=== PATIENT | female | born 1970 | race Caucasian/White ===

== ENCOUNTER 2019-01-26 14:37 | Day surgery (SDC) | payer BC, OTHER ==
[2019-01-25 17:19] VITALS: BMI 38.2
[2019-01-26] MEDS ORDERED: PROPOFOL 20 ML ONE (16:12)
--- NOTE | 2019-01-26 16:21 | HP ---
History & Physical Update - History History: No Change - Physical Physical: No Change - Assessment Assessment: No Change - Plan Plan: No Change (Hysteroscopy, D&C)
[2019-01-26] MEDS ORDERED: DEXAMETHASONE SOD PHOSPHATE 4 MG/1 ML VIAL ONE (17:07)
[2019-01-26] MEDS ORDERED: KETOROLAC TROMETHAMINE 30 MG/1 ML VIAL ONE (17:07)
--- NOTE | 2019-01-26 17:28 | OP ---
Operative Note - Note: Operative Date: 01/26/19 Pre-Operative Diagnosis: Menorrhagia Operation: Hysteroscopy, D&C Findings: Normal uterine cavity Post-Operative Diagnosis: Same as Pre-op Surgeon: Alex Murdock Anesthesiologist/DELINQUENCY COUNSELOR: Jasmeet Benjamin Anesthesia: General Specimens Removed: Endometrial curettings Estimated Blood Loss (mls): 10 Drains, Volume Out (mls): 0 Blood Volume Replaced (mls): 0 Fluid Volume Replaced (mls): 400 Operative Report Dictated: Yes
[2019-01-26] MEDS ORDERED: ACETAMINOPHEN 1000 MG/100 ML VIAL (NON FORMULARY) IVPB ONE ×2 (17:50→17:54)
[2019-01-26 19:32] VITALS: BP 140/64; PULSE 72; TEMP 98.1
--- NOTE | 2019-01-26 23:15 | OP ---
DATE OF OPERATION: 01/26/2019 PREOPERATIVE DIAGNOSIS: Menorrhagia. POSTOPERATIVE DIAGNOSIS: Menorrhagia. PROCEDURE: Hysteroscopy dilation and curettage. SURGEON: Al Pollock M.D. WET PROCESS MILLER HEAD ASSISTANT: None ANESTHESIOLOGIST: Jasmeet Benjamin M.D. ANESTHESIA: General. COMPLICATIONS: None. ESTIMATED BLOOD LOSS: 10 mL. INTRAVENOUS FLUIDS: 400 mL. PATHOLOGY: Endometrial curettings. FINDINGS: Normal uterine cavity. No lesions, no masses. PROCEDURE: The patient was met preoperatively. Risks, benefits, and alternatives of surgery were discussed in detail. All questions were answered. The patient was brought to the OR with the IV running. She was placed on a surgical table in a supine position. The general anesthesia was achieved without difficulty. The patient was then placed in a dorsal lithotomy position using adjustable Power stirrups. She was examined under anesthesia with the findings as described above. The uterus appeared to be small and mobile with no pelvic or adnexal masses. A timeout procedure was conducted as per standard protocol. The patient was then prepped and draped in the usual sterile fashion. A weighted speculum was introduced inside the vagina with good visualization of the cervix. The cervix was grasped with a single-toothed tenaculum. No cervical dilation was needed. The hysteroscope was introduced into the uterine cavity. Through the endocervical canal. The endometrial cavity appears to be within normal limits. The hysteroscope was then removed and sharp endometrial curettage was performed. The procedure was completed with good hemostasis. Once the curettage was finished, all the instruments were removed from the patient. Good hemostasis was confirmed. Sponge, lap, and instrument counts were correct. The patient was returned to supine position. She was transferred to recovery room, in stable condition and awake. AL POLLOCK M.D. [id number]
== END 2019-01-26 19:30 | disposition home or self-care (01) ==
LOC: JASU-SURG 14:37
PROVIDERS: ATTEND Obstetrics & Gynecology
PROC: 0UDB7ZX Extraction of Endometrium, Via Natural or Artificial Opening, Diagnostic (ICD-10-PCS; principal; 2019-01-26 16:30)
PROC: 0UJD8ZZ Inspection of Uterus and Cervix, Via Natural or Artificial Opening Endoscopic (ICD-10-PCS; 2019-01-26 16:30)
DX: N92.0 Excessive and frequent menstruation with regular cycle (principal)
CPT/HCPCS: 84703; 88305-TC; 94760; J0131

== ENCOUNTER 2019-04-20 11:58 | Day surgery (SDC) | payer BC, OTHER ==
[2019-04-19 09:26] VITALS: BMI 38.2
[2019-04-20] MEDS ORDERED: PROPOFOL 20 ML ONE (13:56)
[2019-04-20] MEDS ORDERED: MIDAZOLAM HCL 2 MG/2 ML SINGLE DOSE VIAL ONE (13:57)
[2019-04-20] MEDS ORDERED: SUCCINYLCHOLINE CHLORIDE 200 MG/10 ML SYRINGE ONE (13:57)
--- NOTE | 2019-04-20 14:28 | HP ---
History & Physical Update - History History: No Change (Menometrorrhagia in setting of obesity, prior D&C failed to control sx's) - Physical Physical: No Change - Assessment Assessment: No Change - Plan Plan: No Change (Hysteroscopy, endometrial ablation, possible D&C)
[2019-04-20] MEDS ORDERED: PROMETHAZINE HCL 25 MG/1 ML VIAL IVPB PRN (14:45)
[2019-04-20] MEDS ORDERED: oxyCODONE HCL 5 MG TABLET PO PRN (14:45)
[2019-04-20] MEDS ORDERED: ONDANSETRON 4 MG/2 ML VIAL IVPUSH PRN (14:45)
[2019-04-20] MEDS ORDERED: ceFAZolin SODIUM 1 GM VIAL IVPB ONE (14:50)
[2019-04-20] MEDS ORDERED: ceFAZolin SODIUM 1 GM VIAL ONE (14:50)
--- NOTE | 2019-04-20 16:18 | OP ---
Operative Note - Note: Operative Date: 04/20/19 Pre-Operative Diagnosis: Menometrorrhagia, anemia, obesity Operation: Hysteroscopy, global endometrial resection, D&C. Failed Genesys thermal endometrial ablation. The Genesys procedure was stopped after hystersocopy failed to assure a fluid seal- likely due to flid leaking from Fallopian tubes. There was no perforation and no cervical leak. The thermal ablation was not started. The equipment was changed to a resectoscope. Loop endometrial resection and bipolar cautery were used to resect and ablate the endometrial cavity. Excellent hemostasis was achieved. Findings: 1. Preoperative exam showed active vaginal bleeding, clots in uterine cavity. 2. The uterine cavity was sounded to 11cm. 3. No endometrial lesions noted. 4. Resection of endometrium was done and cautery used to achieve excellent hemostasis. 5. Suction curettage was done to remove fragments. Post-Operative Diagnosis: Same as Pre-op Surgeon: Alex Murdock Anesthesiologist/DELIVERY STOCK CLERK: Rohini Monk Anesthesia: General Specimens Removed: Endometrial fragments Estimated Blood Loss (mls): 100 (preop clots + EBL) Drains, Volume Out (mls): 0 Blood Volume Replaced (mls): 0 Fluid Volume Replaced (mls): 1,100 Operative Report Dictated: Yes
[2019-04-20 18:26] VITALS: BP 133/83; PULSE 82
[2019-04-20 18:32] VITALS: TEMP 98.3
--- NOTE | 2019-04-20 21:08 | OP ---
DATE OF OPERATION: 04/20/2019 PREOPERATIVE DIAGNOSES: Menometrorrhagia, anemia, obesity. POSTOPERATIVE DIAGNOSES: Menometrorrhagia, anemia, obesity. PROCEDURE: Hysteroscopy, global endometrial resection, and dilatation and curettage, failed Genesys hydrothermal endometrial ablation. FINDINGS: Examination under anesthesia revealed a mildly enlarged, anteverted uterus with no pelvic or adnexal masses. The uterus was noted to be freely mobile within the pelvic cavity. Active vaginal bleeding was noted from the cervix. The cervical os was dilated to approximately 1 cm and parous. Hysteroscopy revealed multiple clots inside the uterus with no lesions or masses. The uterine cavity was sounded to approximately 11 cm. After the resection of the endometrial cavity was done, excellent hemostasis was noted. SURGEON: Alex Murdock MD ANESTHESIOLOGIST: LARON Escalante ANESTHESIA: General. COMPLICATIONS: None. ESTIMATED BLOOD LOSS: Approximately 100 mL including preoperative clots inside the uterus and vagina as well as estimated blood loss during surgery. INTRAVENOUS FLUIDS: Crystalloid 1100 mL. DESCRIPTION OF PROCEDURE: The patient was met preoperatively. Risks, benefits , and alternatives were discussed. The consent form was reviewed. All questions were answered. The patient verbalized her understanding. The patient was then brought to the OR with the IV running. She was placed on a surgical table in the supine position. The general anesthesia was achieved without difficulty. The patient was then placed in a dorsal lithotomy position using adjustable Power stirrups. She was examined under anesthesia with the findings as described above. The patient was then prepped and draped in the usual sterile fashion. A weighted speculum was introduced inside the vagina with good visualization of the cervix. The cervix was grasped with a single-tooth tenaculum. The cervical os did not require any dilation as it was already noted to be approximately 1 cm dilated. There was active bleeding noted from the cervical os. A [employer] hysteroscopy system was then used to perform a diagnostic hysteroscopy. Diagnostic hysteroscopy revealed a slightly enlarged uterine cavity. There were no endometrial lesions or masses, and active endometrial bleeding was observed during hysteroscopy. At that point, a good cervical seal was achieved , and an attempt was made to proceed with the global endometrial thermal ablation using Genesys system. However, despite multiple attempts, a fluid seal could not be achieved. There was no uterine perforation or cervical leakage noted. It is possible that the fluid was escaping through the fallopian tubes. So, the fluid seal could not be achieved, and the thermal ablation could not be started. At that point, the decision was made to abandon the Genesys thermal ablation, and the equipment was changed to proceed with the hysteroscopic resection and ablation of the endometrial cavity using a bipolar loop. Now, once the equipment was changed, a Storz resectoscope was inserted inside the uterine cavity. Once again, the uterine cavity appeared to be within normal limits, but there was some active bleeding noted from the endometrial lining. The loop was used to perform global endometrial resection. The bipolar cautery was then used to cauterize fragments of the uterine cavity that were noted to have some bleeding. Once this was accomplished, excellent hemostasis was confirmed. The resected fragments were removed from the uterine cavity and suction curettage was performed to remove any remaining fragments of the endometrial lining, uterus, and blood clots. After this was finished, excellent hemostasis was confirmed. The patient was returned to supine position. Sponge, lap, and instrument counts were correct. The patient was then transferred to recovery room in stable condition and awake. Michael [id number] EUGENIO
--- NOTE | 2019-04-22 15:53 | PATH ---
Surgical Pathology Report Patient Name: DANI MACK [facility]. Rec. #: [id number] /Age/Gender: 1970 (Age: 48) / F Account: [id number] Location: [facility] SURGICAL Taken: 04/20/2019 Received: 04/21/2019 Reported: 04/22/2019 Physicians: Aelx Murdock M.D. Specimen(s) Received A: ENDOMETRIAL CURETTINGS B: ENDOMETRIAL CURETTINGS Clinical History Excessive and frequent menstruation Final Diagnosis A. ENDOMETRIAL CURETTINGS, DILATION AND CURETTAGE: FRAGMENTS OF PROLIFERATIVE ENDOMETRIUM WITH ACUTE AND CHRONIC ENDOMETRITIS, PATCHY DECIDUALIZED STROMA, AND ABUNDANT FIBROMUSCULAR TISSUE IN A BACKGROUND OF BLOOD. B. ENDOMETRIAL CURETTINGS, DILATION AND CURETTAGE, RESECTION: FRAGMENTS OF PROLIFERATIVE ENDOMETRIUM WITH ACUTE AND CHRONIC ENDOMETRITIS, PATCHY DECIDUALIZED STROMA, ABUNDANT FIBROMUSCULAR TISSUE, AND SCANT ENDOCERVICAL MUCOSA. Electronically Signed Rdaha Winter M.D. Gross Description A. Received in formalin labeled "endometrial curettings," is a 4.8 x 3.5 x 0.5 cm aggregate of mcguire, firm to rubbery tissue fragments admixed with blood clot. The formalin and filtered and the specimen is entirely submitted in 4 cassettes. B. Received in formalin labeled "endometrial resection," is a 2.4 x 2.0 x 0.3 cm aggregate of mcguire brown soft tissue fragments. The formalin is filtered and the specimen is entirely submitted in one cassette. /04/21/2019 saudi04/21/2019
== END 2019-04-20 18:32 | disposition home or self-care (01) ==
LOC: JASU-SURG 11:58
PROVIDERS: ATTEND Obstetrics & Gynecology
PROC: 0U5B8ZZ Destruction of Endometrium, Via Natural or Artificial Opening Endoscopic (ICD-10-PCS; principal; 2019-04-20 14:00)
PROC: 0UDB8ZX Extraction of Endometrium, Via Natural or Artificial Opening Endoscopic, Diagnostic (ICD-10-PCS; 2019-04-20 14:00)
DX: N92.1 Excessive and frequent menstruation with irregular cycle (principal); D64.9 Anemia, unspecified; E66.9 Obesity, unspecified; Z68.38 Body mass index [BMI] 38.0-38.9, adult
CPT/HCPCS: 36415; 84703; 86850; 86900; 86901; 88305-TC; 94760

== ENCOUNTER 2020-10-15 15:56 | Emergency (ER) | payer BC, OTHER ==
[2020-10-15 16:15] VITALS: TEMP 98.3; BMI 39.9
[2020-10-15] MEDS ORDERED: ACETAMINOPHEN 1000 MG/100 ML VIAL (NON FORMULARY) IVPB ONE (16:16)
[2020-10-15] MEDS ORDERED: KETOROLAC TROMETHAMINE 30 MG/1 ML VIAL IM ONE (16:21)
[2020-10-15] MEDS ORDERED: CYCLOBENZAPRINE HCL 10 MG TABLET (FP) ONE (16:24)
[2020-10-15] MEDS ORDERED: ACETAMINOPHEN 500 MG TABLET (FP) ONE (16:24)
[2020-10-15] MEDS ORDERED: LIDOCAINE 5% TOPICAL PATCH TP ONE (16:25)
[2020-10-15] MEDS ORDERED: LIDOCAINE 5% TOPICAL PATCH ONE (16:25)
[2020-10-15] MEDS ORDERED: KETOROLAC TROMETHAMINE 30 MG/1 ML VIAL ONE (16:25)
[2020-10-15] MEDS ORDERED: ACETAMINOPHEN 325 MG TABLET (FP) PO ONE (16:27)
[2020-10-15] MEDS ORDERED: ACETAMINOPHEN 500 MG TABLET (FP) PO ONE (16:46)
[2020-10-15] MEDS ORDERED: oxyCODONE HCL 5 MG TABLET PO ONE (17:39)
[2020-10-15] MEDS ORDERED: oxyCODONE HCL 5 MG TABLET ONE (17:47)
[2020-10-15 18:47] VITALS: BP 91/50; PULSE 74
[2020-10-15 19:17] LABS: HCG,QUALITATIVE URINE Negative
[2020-10-15 19:18] LABS: EPITHELIAL CELLS FEW /hpf
[2020-10-15] MEDS ORDERED: DEXAMETHASONE SOD PHOSPHATE 10 MG/1 ML VIAL ONE (20:47)
[2020-10-15] MEDS ORDERED: DEXAMETHASONE SOD PHOSPHATE 10 MG/1 ML VIAL IM ONE (20:54)
[2020-10-15] MEDS ORDERED: LIDOCAINE PATCH REMOVAL MC SCH (22:00)
[2020-10-16] MEDS ORDERED: CYCLOBENZAPRINE HCL 5 MG TABLET PO SCH (10:00)
== END 2020-10-15 21:11 | disposition home or self-care (01) ==
LOC: FER 15:56
PROC: 3E023GC Introduction of Other Therapeutic Substance into Muscle, Percutaneous Approach (ICD-10-PCS; principal; 2020-10-15)
DX: M54.31 Sciatica, right side (principal)
CPT/HCPCS: 74176-TC; 81003; 81015; 84703; 87086; 99285-25; J1100

== ENCOUNTER 2023-03-10 08:55 | Emergency (ER) | payer BC, OTHER ==
[2023-03-10 09:03] VITALS: BP 133/74; PULSE 95; RESP 18; TEMP 97.5; BMI 38.2
[2023-03-10] MEDS ORDERED: IBUPROFEN 600 MG TABLET (FP) PO ONE ×2 (09:46→09:56)
[2023-03-10] MEDS ORDERED: ACETAMINOPHEN 500 MG TABLET (FP) PO ONE (09:46)
[2023-03-10] MEDS ORDERED: ACETAMINOPHEN 325 MG TABLET (FP) ONE (09:56)
== END 2023-03-10 11:14 | disposition home or self-care (01) ==
LOC: FER 08:55
DX: M79.18 Myalgia, other site (principal); M54.50 Low back pain, unspecified; R20.2 Paresthesia of skin; V49.40XA Driver injured in collision with unspecified motor vehicles in traffic accident, initial encounter; Y93.I9 Activity, other involving external motion
CPT/HCPCS: 72131-TC; 99284-25